=== PATIENT | female | born 1945 | race Caucasian/White ===

== ENCOUNTER 2019-11-05 13:53 | Outpatient (CLI) | payer MEDICARE, SELFPAY ==
[2019-11-05] MEDS: HEPARIN SOD FLUSH 500 UNITS/5 ML SYRINGE IV PUSH (14:05)
--- NOTE | 2019-11-05 14:08 | PC.NURSE ---
Patient here for port flush to left chest. Port site accessed easily. Patient tolerated fair. Port flushed well. Good blood return received. Port flushed with 10 ml of normal Saline and 5 ml of heparin 500 UT. Port deaccessed. Band aid applied to site. Next appt. made for 320 at 1000. Patient denies any questions at discharge. Left via wheelchair accompanied by Home care worker.
== END 2019-11-05 13:54 | disposition home or self-care (01) ==
PROVIDERS: PCP Nurse Practitioner Family; Visit Provider Nurse Practitioner Family
DX: Z45.2 Encounter for adjustment and management of vascular access device (principal)
CPT/HCPCS: 96523

== ENCOUNTER 2019-11-11 15:20 | Outpatient (CLI) | payer MEDICARE, SELFPAY ==
--- NOTE | ~2019-11-11 | XR_ITS ---
EXAMINATION: XR ribs LT 2V w CXR 2V INDICATION: Left chest pain after fall TECHNIQUE: PA and lateral views of the chest and 3 views of the left ribs were obtained. COMPARISON: 09/30/2017 FINDINGS: A left subclavian Port-A-Cath ends with its tip in the proximal superior vena cava. There i s chronic airspace opacity in the right lung apex, consistent with treated malignancy. There is mild atelectasis of the lower lobes. No pleural effusion or pneumothorax is identified. The heart size is normal. No displaced left for fracture is identified. There is mild left shoulder osteoarthritis. An IVC filter is noted in the abdomen on the lateral view. IMPRESSION: 1. No displaced rib fracture identified. 2. Chronic opacity in the right lung apex, consistent with treated malignancy. Reviewed, dictated and finalized at location A. IAL TECHNICAL OPERATIONS OFFICER
== END 2019-11-11 15:21 | disposition home or self-care (01) ==
LOC: CHSIMG 15:24
PROVIDERS: PCP Family Medicine; Visit Provider Family Medicine
DX: R07.81 Pleurodynia (principal); W19.XXXA Unspecified fall, initial encounter
CPT/HCPCS: 71045; 71101

== ENCOUNTER 2020-06-08 15:35 | Emergency (ER) | payer MEDICARE, SELFPAY ==
--- NOTE | ~2020-06-08 | CT_ITS ---
EXAMINATION: CT abdomen pelvis w con INDICATION: Left lower quadrant pain, history of ventral hernia, concern for small bowel obstruction TECHNIQUE: Computed tomographic images of the abdomen and pelvis were obtained after the administrati on of 100 cc of Omnipaque 350 intravenous contrast. The dose-length product (DLP) was 1540.37 mGy-cm. Automated exposure control and iterative reconstruction technique were employed. COMPARISON: 09/28/2015 FINDINGS: Minimal dependent atelectasis is present in the lung bases. The heart size is normal. The g allbladder is surgically absent. The liver, spleen, pancreas, and adrenal glands are normal. Cysts of the kidneys measure up to 3.1 cm on the right. An inferior vena cava filter is noted. There is calci fied atherosclerosis of the aorta and many of the other arteries. No pathologically enlarged abdomina l or pelvic lymph nodes are identified. There are changes of prior mesh ventral hernia repair. A larg e fat-containing ventral hernia is present immediately cranial to the mesh. There is a midline ventra l hernia containing nonobstructed small bowel immediately caudal to the mesh. There is no free intrap eritoneal gas or evidence of bowel obstruction. There is severe lumbar spondylosis. IMPRESSION: 1. Changes of mesh ventral hernia repair with a large fat-containing hernia immediately cranial to th e mesh and a moderate-sized hernia containing nonobstructed small bowel immediately caudal to the mes h. Reviewed, dictated and finalized at location A. IMPRESSION: 1. Changes of mesh ventral hernia repair with a large fat-containing hernia imm ediately cranial to the mesh and a moderate-sized hernia containing nonobstruct ed small bowel immediately caudal to the mesh.
[2020-06-08 16:34] VITALS: BP 165/94; PULSE 81; RESP 18; TEMP 36.6; O2SAT 100
--- NOTE | 2020-06-08 16:39 | ED.ABDPAIN ---
HPI - Abdominal Pain General Chief Complaint: Abdominal Pain Stated Complaint: possible bowel obstruction Time Seen by Provider: 06/08/20 16:39 Source: patient Mode of arrival: wheelchair Limitations: no limitations History of Present Illness HPI narrative: 75-year-old woman who has had hernia gallbladder surgery comes in today complaining of abdominal pain. She states that she has had abdominal pain for a long time but today is much worse. She denies fever, nausea, vomiting, diarrhea, blood in her stools, dysuria, hematuria, or change in appetite. She states the pain is worse with movement and coughing. Is mostly on the left lower quadrant. MD elicited complaint: abdominal pain Pertinent past history: constipation and other ( Ventral hernia) Onset (ago): day(s) (1-2) Pain Consistency: constant Location: LLQ Severity: moderate Quality: sharp Radiation: none Migration to: no migration Exacerbating factors: movement and other (cough) Associated symptoms: nausea and diarrhea (she states the diarrhea is from constipation medications) Related Data Home Medications Medication Instructions Recorded Confirmed acetaminophen 500 mg tablet 1,000 mg PO TID PRN tablet 07/27/19 06/08/20 albuterol sulfate 2.5 mg INHALATION Q4-6H PRN MDD 07/27/19 06/08/20 2.5mg ascorbic acid (vitamin C) 1,000 mg 1 gm PO DAILY 07/27/19 06/08/20 tablet aspirin 81 mg tablet,delayed 81 mg PO DAILY 07/27/19 06/08/20 release furosemide 40 mg tablet 40 mg PO QAM 07/27/19 06/08/20 ipratropium 0.5 mg-albuterol 3 mg 3 ml INHALATION QID PRN MDD 3 07/27/19 06/08/20 (2.5 mg base)/3 mL nebulization soln levothyroxine 88 mcg tablet 88 mcg PO DAILY 07/27/19 06/08/20 magnesium oxide 400 mg PO DAILY 07/27/19 06/08/20 atorvastatin 80 mg tablet 80 mg PO DAILY 02/01/20 06/08/20 cholecalciferol (vitamin D3) 10 10 mcg PO DAILY 02/01/20 06/08/20 mcg (400 unit) capsule hydrocodone 5 mg-acetaminophen 325 1 tablet PO Q6H PRN MDD 1 02/01/20 06/08/20 mg tablet metformin 500 mg tablet 500 mg PO BID 02/01/20 06/08/20 Allergies Allergy/AdvReac Type Severity Reaction Status Date / Time adhesive Allergy Intermediate Unknown Verified 06/08/20 17:14 latex Allergy Intermediate Unknown Verified 06/08/20 17:14 Review of Systems Constitutional: Constitutional: Denies chills, Denies fever(s) and Denies weakness Eyes: Eyes: Denies change in vision and Denies photophobia ENT: Denies dysphagia, Denies nasal congestion and Denies sore throat Cardiovascular: Cardiovascular: Denies chest pain and Denies radiating jaw, neck or arm pain Respiratory: Respiratory: Denies cough and Denies dyspnea Gastrointestinal: Gastrointestinal: Reports abdominal pain, Reports diarrhea, Reports nausea and Denies vomiting Genitourinary: Genitourinary: Denies hematuria, Denies nocturia and Denies dysuria Musculoskeletal: Musculoskeletal: Denies back pain, Denies arthralgias and Denies joint swelling Integumentary/Breasts: Skin/Breast: Denies pruritus, Denies erythema and Denies rash Neurologic: Denies vertigo, Denies dizziness and Denies syncope Hematologic/Lymphatic: Hematologic/Lymphatic: Denies easy bleeding and Denies easy bruising Allergic/Immunologic: Allergic/Immunologic: Denies lip swelling and Denies tongue swelling PMFSH Past Medical History Medical History CHF (congestive heart failure) Chronic kidney disease, stage 3 (moderate) COPD (chronic obstructive pulmonary disease) Effusion of glenohumeral joint Essential hypertension Femoral artery stenosis, left Full thickness rotator cuff tear GERD without esophagitis HLD (hyperlipidemia) Hypothyroid Leg weakness, bilateral Low back pain Lung cancer Morbidly obese HALI (obstructive sleep apnea) Osteoarthritis of acromioclavicular joint Osteoarthritis of glenohumeral joint Type 2 diabetes mellitus Surgical History Surgical History (Reviewed 06/08/20 @ 17:00 by
--- NOTE | 2020-06-08 17:03 | ECG_ITS ---
Measurements Intervals [place] Rate: 77 P: 38 VT: 256 QRS: -9 QRSD: 101 T: 48 QT: 424 QTc: 481 Interpretive Statements SINUS RHYTHM WITH FIRST DEGREE AV BLOCK EARLY PRECORDIAL R/S TRANSITION ABNORMAL ECG Electronically Signed On 06-08-2020 17:47:23 CDT by Chauncey Pérez D.O.
[2020-06-08 17:20] LABS: Basophils Absolute Auto 0.03 K/mm3 (0.00-0.10); Basophils Percent Auto 0.5 % (0.0-1.0); Eosinophils Absolute Auto 0.53 K/mm3 (0.02-0.50); Eosinophils Percent Auto 8.4 % (1.0-6.0); Hematocrit 35.3 % (35.0-42.0); Hemoglobin 10.9 g/dL (11.7-13.8); Immature Granulocyte Absolute 0.02 K/mm3 (0.00-0.00); Immature Granulocyte Percent A 0.3 % (0.0-0.0); Mean Corpuscular HGB Conc 30.9 g/dL (32.0-36.0); Mean Corpuscular Hemoglobin 28.4 pg (27.0-31.0); Mean Corpuscular Volume 91.9 fL (78.0-102.0); Mean Platelet Volume 9.6 fl (9.2-11.8); Monocytes Absolute Auto 0.63 K/mm3 (0.10-0.90); Neutrophils Absolute Auto 3.9 K/mm3 (1.7-7.2); Neutrophils Percent Auto 61.8 % (50.0-70.0); Platelet Count Result 265 K/mm3 (150-420); Red Blood Count 3.84 M/mm3 (4.20-5.40); White Blood Count 6.3 K/mm3 (4.8-10.8)
[2020-06-08 17:36] LABS: Partial Thromboplastin Time 28.2 SEC (22.3-31.6); Prothrombin Time 10.5 Seconds (9.64-11.0)
[2020-06-08 17:42] LABS: Lactic Acid Reflex 0.8 mmol/L (0.4-2.0)
[2020-06-08 17:49] LABS: Alanine Aminotransferase 31 U/L (14-59); Albumin Level 3.6 g/dL (3.4-5.0); Alkaline Phosphatase 74 U/L (46-116); Anion Gap 5 mmol/L (8-16); Aspartate Amino Transferase 23 U/L (15-37); Bilirubin,Total 0.3 mg/dL (0.00-1.00); Blood Urea Nitrogen 17 mg/dL (7-18); Carbon Dioxide 33 mmol/L (21-32); Chloride 99 mmol/L (98-108); Estimated CRCL calculation 71 ml/min; Estimated Glomerular Filt Rate > 60; Glucose 143 mg/dL (70-99); Lipase 67 U/L (73-393); Osmolality Calculated 287 mOsm/kg (285-295); Potassium 4.1 mmol/L (3.5-5.1); Sodium 137 mmol/L (136-145); Total Protein 7.4 g/dL (6.4-8.2)
[2020-06-08 17:51] LABS: Troponin I < 0.02 ng/mL (0.00-0.056)
[2020-06-08] MEDS: SODIUM CHLORIDE 0.9% IV 1,000 ML 999 ML IV CONT (18:04)
[2020-06-08] MEDS: ONDANSETRON INJ 4 MG/2 ML VIAL IV PUSH (18:13)
[2020-06-08 18:17] VITALS: BP 151/76; PULSE 76; RESP 20; O2SAT 97
--- NOTE | 2020-06-08 18:17 | PC.NURSE ---
Assumed care of patient. VSS, patient reports zero pain at this time. Morphine that has been ordered has been held, ERP aware
[2020-06-08 18:24] LABS: Add Urine Microscopic? NO; Appearance Urine Clear (Clear); Bilirubin Urine Negative (Negative); Blood Urine Negative (Negative); Color Urine Yellow (Yellow); Glucose Urine UA Negative (Negative); Ketones Urine Negative (Negative); Leukocyte Esterase Ur Negative LEU/UL (Negative); Nitrate Urine Negative (Negative); Protein Urine Negative (Negative); Urobilinogen Urine 0.2 mg/dL (0.2-1.0); pH Urine 5.5 (5.0-8.0)
[2020-06-08 19:10] VITALS: BP 148/71; PULSE 80; RESP 18; O2SAT 96
--- NOTE | 2020-06-08 19:11 | PC.NURSE ---
Pt returned from CT scan, continues to deny pain. VSS, awaiting dispo
[2020-06-08 20:01] VITALS: BP 144/72; PULSE 80; RESP 18; O2SAT 94
== END 2020-06-08 20:28 ==
PROVIDERS: Emergency Provider Emergency Medicine; PCP Family Medicine
DX: K43.9 Ventral hernia without obstruction or gangrene (principal); I50.9 Heart failure, unspecified; N18.3 Chronic kidney disease, stage 3 (moderate); K21.9 Gastro-esophageal reflux disease without esophagitis; E78.5 Hyperlipidemia, unspecified; E03.9 Hypothyroidism, unspecified; E11.9 Type 2 diabetes mellitus without complications; F17.200 Nicotine dependence, unspecified, uncomplicated
CPT/HCPCS: 36415; 51701; 74177; 80053; 81003; 83605; 83690; 84484; 85025; 85610; 85730; 93005; 96361; 96374; 99284; J2405; J7030; Q9965

== ENCOUNTER 2020-08-29 16:05 | Inpatient (IN) | payer MEDICARE, BC, SELFPAY ==
--- NOTE | ~2020-08-29 | CT_ITS ---
EXAMINATION: CTA chest PE protocol EXAM DATE: 08/29/2020 23:42 INDICATION: Elevated d-dimer. COVID 19. Shortness of breath. TECHNIQUE: Spiral CTA of the chest (pulmonary arteries) was performed with 100 cc Omnipaque 350 intr avenous contrast injection. Images were acquired during the pulmonary arterial phase. Coronal maxi mum intensity projection 3D-reconstructions were created by the technologist on dedicated workstation . Axial, coronal and sagittal reformatted images were reviewed. The dose-length product (DLP) for t his examination was 914.81 mGy-cm. The exposure was tailored according to patient size (auto mA exp osure control), and iterative reconstruction (ASIR) was used as additional dose reduction technique. Comparison is made to prior examination from 07/19/2017 series doesn't to medical management specialist servic e, and axilla are unremarkable. Scans pelvic splenomegaly, but before. FINDINGS: There are no pulmonary emboli in the 1st through 3rd order (central and interlobar) pulmon yeison arteries. Some loss of attenuation in the segmental pulmonary arteries due to respiratory motion , but no intraluminal filling defects suspected. No thoracic aortic dissection. There is left upper lobe volume loss and opacity, appearance consistent with treated lung cancer, wit h extension of soft tissue density into the hilum. Basilar, dependent predominant groundglass opaciti es could be edema and/or infection. There are no pleural or pericardial effusions. Tracheobronchial tree is patent. There is no mediastinal, hilar or axillary lymphadenopathy. There is no pneumoth orax. Mild cardiomegaly. Left-sided portacatheter. There is exophytic lesion at the midpole of the left kidney measuring 1.5 cm, hemorrhagic cyst or solid mass. Upper abdomen is unremarkable. There is thoracic spondylosis without osteoblastic or osteolytic lesions identified. IMPRESSION: 1. Limited segmental evaluation, but no pulmonary emboli are suspected. 2. Basilar dependent groundglass opacities, edema and/or infection. 3. Right suprahilar soft tissue density insinuating into hilum, likely treated lung cancer. 4. Exophytic left renal hemorrhagic cyst or solid neoplasm. Consider nonemergent kidney ultrasound. Reviewed, dictated and finalized at location A. THCARE MANAGEMENT CONSULTANT IMPRESSION: 1. Limited segmental evaluation, but no pulmonary emboli are suspected. 2. Basilar dependent groundglass opacities, edema and/or infection. 3. Right suprahilar soft tissue density insinuating into hilum, likely treated lung cancer. 4. Exophytic left renal hemorrhagic cyst or solid neoplasm. Consider nonemerge nt kidney ultrasound.
--- NOTE | ~2020-08-29 | XR_ITS ---
EXAMINATION: XR chest 1V portable DATE: 08/30/2020 12:11 INDICATION: Shortness of breath. COVID-19 positive. TECHNIQUE: A single frontal view of the chest was obtained on 2 radiographs. COMPARISON: Chest 2 views 11/11/2019, chest CT 08/29/2020 FINDINGS: There are airspace opacities in the perihilar regions and right lung apex with volume loss and architectural distortion, consistent with radiation fibrosis. There are mild airspace opacities i n right mid and lower lung zones and left lower lung zone. No pleural effusion or pneumothorax. The h eart size is normal. There is a left subclavian port with tip in superior vena cava. IMPRESSION: 1. Airspace opacities in right mid and lower lung zones and left lower lung zone, consistent with ate lectasis versus pneumonia. 2. 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 Reviewed, dictated and finalized at location A. GHT SERVICE INSPECTOR IMPRESSION: 1. Airspace opacities in right mid and lower lung zones and left lower lung zon e, consistent with atelectasis versus pneumonia. 2. 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
--- NOTE | 2020-08-29 16:18 | ECG_ITS ---
Measurements Intervals [place] Rate: 78 P: 39 NC: 253 QRS: -7 QRSD: 110 T: 56 QT: 415 QTc: 474 Interpretive Statements SINUS RHYTHM WITH FIRST DEGREE AV BLOCK INTRAVENTRICULAR CONDUCTION DELAY ABNORMAL ECG Electronically Signed On 08-29-2020 18:10:44 [employer] by Chauncey Pérez D.O.
--- NOTE | 2020-08-29 16:22 | PM.IMHP ---
H&P: HPI History of Present Illness Date/Time: 08/29/20 16:22 Chief complaint: COVID Narrative: Akila Doty is a 75 year old female with a PMH of OA, HALI, COPD, CHF, DMII and morbid obesity that resides in [facility] that tested positive for COVID and has increasing oxygen demand and SOB, fatigue, cough, body aches and fever. She was directly admitted to the hospital for Review of Systems Constitutional: Constitutional: Reports as per HPI Eyes: Eyes: Reports no additional eye complaints ENT: Reports system reviewed and no additional complaints, except as documented Cardiovascular: Cardiovascular: Reports as per HPI Respiratory: Respiratory: Reports as per HPI Gastrointestinal: Gastrointestinal: Reports no additional gastrointestinal complaints Genitourinary: Genitourinary: Reports no additional female genitourinary complaints Musculoskeletal: Musculoskeletal: Reports no additional musculoskeletal complaints Integumentary/Breasts: Skin/Breast: Reports system reviewed and no additional complaints, except as docu Neurologic: Reports system reviewed and no additional complaints, except as documented Psychiatric: Psychiatric: Reports no additional psychiatric complaints [facility] Past Medical History Medical History CHF (congestive heart failure) Chronic kidney disease, stage 3 (moderate) COPD (chronic obstructive pulmonary disease) Effusion of glenohumeral joint Essential hypertension Femoral artery stenosis, left Full thickness rotator cuff tear GERD without esophagitis HLD (hyperlipidemia) Hypothyroid Leg weakness, bilateral Low back pain Lung cancer Morbidly obese HALI (obstructive sleep apnea) Osteoarthritis of acromioclavicular joint Osteoarthritis of glenohumeral joint Type 2 diabetes mellitus Ventral hernia Surgical History Surgical History History of back surgery History of carpal tunnel surgery History of cholecystectomy History of hernia repair History of knee replacement, total History of laminectomy History of left cataract surgery History of right cataract surgery History of thyroidectomy Family History Family History Father Acute myocardial infarction Cerebrovascular accident Mother Family history of type 2 diabetes mellitus Sibling Heart disease Other Hypertension Social History Social History Smoking status: Current every day smoker Alcohol intake: never Meds Home Medications and Allergies Home Medications Medication Instructions Recorded Confirmed Type acetaminophen 500 mg tablet 1,000 mg PO TID PRN tablet 07/27/19 06/14/20 History albuterol sulfate 2.5 mg INHALATION Q4-6H PRN MDD 07/27/19 06/14/20 History 2.5mg ascorbic acid (vitamin C) 1,000 mg 1 gm PO DAILY 07/27/19 06/14/20 History tablet aspirin 81 mg tablet,delayed 81 mg PO DAILY 07/27/19 06/14/20 History release furosemide 40 mg tablet 40 mg PO QAM 07/27/19 06/14/20 History ipratropium 0.5 mg-albuterol 3 mg 3 ml INHALATION QID PRN MDD 3 07/27/19 06/14/20 History (2.5 mg base)/3 mL nebulization soln levothyroxine 88 mcg tablet 88 mcg PO DAILY 07/27/19 06/14/20 History magnesium oxide 400 mg PO DAILY 07/27/19 06/14/20 History escitalopram oxalate 20 mg tablet 20 mg PO DAILY #30 tablet 12/14/19 06/14/20 Rx atorvastatin 80 mg tablet 80 mg PO DAILY 02/01/20 06/14/20 History cholecalciferol (vitamin D3) 10 10 mcg PO DAILY 02/01/20 06/14/20 History mcg (400 unit) capsule hydrocodone 5 mg-acetaminophen 325 1 tablet PO Q6H PRN MDD 1 02/01/20 06/14/20 History mg tablet metformin 500 mg tablet 500 mg PO BID 02/01/20 06/14/20 History Allergies Allergy/AdvReac Type Severity Reaction Status Date / Time adhesive Allergy Intermediate Unknown Verified 1
[2020-08-29 17:15] VITALS: BP 148/78; PULSE 79; PULSE 89; RESP 22; TEMP 36.4; O2SAT 93; BMI 42.8
--- NOTE | 2020-08-29 17:15 | ADMGEN ---
This patient, Akila Doty, was admitted to 2nd Floor Room 210-2. Patient/family oriented to hospital policies and general routines including ID bracelet, bed and alarms, visiting hours, pain management, procedures, bathroom and other care routines, personal items, smoking policy, room service/diet, and visiting hours. Information on how to activate the Rapid Response Team has been discussed. Patient/Family are encouraged to report perceived risks to care and to ask questions if they do not understand what they are told or what they should do.
[2020-08-29 17:45] VITALS: PULSE 75
[2020-08-29 18:22] LABS: Base Excess ABG 2.8 mmol/L (0-2); HCO3 ABG 27.4 mmol/L (23-29); Oxygen Content ABG 16.7 %vol (16.0-22.0); Oxygen Saturation ABG 92.2 % (95-97); Oxyhemoglobin 91.4 % (94-100); PCO2 ABG 42.4 mmHg (35-45); PO2 ABG 58.3 mmHg (75-85); pH ABG 7.43 (7.35-7.45)
[2020-08-29 18:23] LABS: Device NASAL CANNULA; Modified Allen's Test Pass; Site Drawn RIGHT RADIAL
[2020-08-29 18:26] LABS: Eosinophils Absolute Auto 0.02 K/mm3 (0.02-0.50); Eosinophils Percent Auto 0.5 % (1.0-6.0); Hematocrit 39.8 % (35.0-42.0); Hemoglobin 12.2 g/dL (11.7-13.8); Immature Granulocyte Absolute 0.06 K/mm3 (0.00-0.00); Immature Granulocyte Percent A 1.4 % (0.0-0.0); Lymphocytes Percent Auto 9.5 % (18.0-42.0); Mean Corpuscular HGB Conc 30.7 g/dL (32.0-36.0); Mean Corpuscular Hemoglobin 27.2 pg (27.0-31.0); Mean Corpuscular Volume 88.8 fL (78.0-102.0); Monocytes Absolute Auto 0.27 K/mm3 (0.10-0.90); Monocytes Percent Auto 6.4 % (2.0-11.0); Neutrophils Absolute Auto 3.5 K/mm3 (1.7-7.2); Neutrophils Percent Auto 82.2 % (50.0-70.0); Platelet Count Result 158 K/mm3 (150-420); Red Blood Count 4.48 M/mm3 (4.20-5.40); Red Cell Distribution Width 15.2 % (11.6-14.4); White Blood Count 4.2 K/mm3 (4.8-10.8)
[2020-08-29 18:44] LABS: BNP 105 pg/mL (0-100)
[2020-08-29 18:45] LABS: Alanine Aminotransferase 50 U/L (14-59); Alkaline Phosphatase 67 U/L (46-116); Anion Gap 10 mmol/L (8-16); Aspartate Amino Transferase 56 U/L (15-37); Bilirubin,Total 0.5 mg/dL (0.00-1.00); Blood Urea Nitrogen 34 mg/dL (7-18); Carbon Dioxide 31 mmol/L (21-32); Chloride 94 mmol/L (98-108); Estimated CRCL calculation 46 ml/min; Estimated Glomerular Filt Rate 40; Glucose 148 mg/dL (70-99); Osmolality Calculated 290 mOsm/kg (285-295); Potassium 3.5 mmol/L (3.5-5.1); Sodium 135 mmol/L (136-145); Total Protein 7.9 g/dL (6.4-8.2); Troponin I 12.8 ng/L (0.00-60.4)
[2020-08-29 18:46] LABS: CRP > 25.0 mg/dL (0.0-0.9)
[2020-08-29 19:07] LABS: INR 0.9; Prothrombin Time 10.3 Seconds (9.50-12.10)
[2020-08-29 20:00] VITALS: BP 170/81; PULSE 80; PULSE 81; RESP 20; TEMP 36.6; O2SAT 93
--- NOTE | 2020-08-29 20:30 | PCDIET ---
Patient stated that she no longer wants to be a full code. Email sent to Straw Hat Brim Cutter Operator regarding statement.
[2020-08-29] MEDS: REMDESIVIR 200 MG/NS 250 ML 200 MG/250 ML BAG 250 MG IVPB (20:58)
[2020-08-29] MEDS: SODIUM CHLORIDE 0.9% IV 1,000 ML 150 ML IV CONT (21:00)
[2020-08-29] MEDS: ENOXAPARIN 40 MG/0.4 ML SYRINGE SUB-Q (21:25)
[2020-08-30] VITALS (13 sets, daily range): BP systolic 121–190; BP diastolic 59–100; PULSE 66–125; RESP 22–38; TEMP 35.7–36.8; O2SAT 90–95
--- NOTE | 2020-08-30 00:10 | PC.NURSE ---
Consent for CT received from sister Cece Pringle. Unable to contact son or daughter. returned from CT. Able to respond to verbally to question. alert to self only
--- NOTE | 2020-08-30 06:00 | PC.NURSE ---
Dr. Kumar notified of patient's heart rate increased to the 130's to 140's and A-fib at times. Lungs sound wet. Sao2 down to 89%. O2 increased to 6L from 4 per NC. SaO2 increased to 92%. BP 180/90. Order received.
[2020-08-30 06:03] LABS: Alanine Aminotransferase 52 U/L (14-59)
--- NOTE | 2020-08-30 06:13 | PC.NURSE ---
Patient experiencing a-fib and tachycardia. BP 180/90 respirations 38. SPO2 89% on 4 liters. O2 increased to 6 liters-SPO2 up to 90% A-fib and increased respirations continue. Doctor notified and order received for 60 mgs of lasix IVP. Administered as ordered.
[2020-08-30] MEDS: FUROSEMIDE INJ 40 MG/4 ML VIAL 80 MG (06:27)
[2020-08-30] MEDS: dilTIAZem HCl INJ 25 MG/5 ML VIAL IV PUSH (06:34)
[2020-08-30] MEDS: dilTIAZem HCl INJ 25 MG/5 ML VIAL (06:36)
[2020-08-30 06:52] LABS: Anion Gap 10 mmol/L (8-16); Basophils Absolute Auto 0.01 K/mm3 (0.00-0.10); Basophils Percent Auto 0.2 % (0.0-1.0); Blood Urea Nitrogen 29 mg/dL (7-18); Calcium 8.5 mg/dL (8.5-10.1); Carbon Dioxide 31 mmol/L (21-32); Chloride 97 mmol/L (98-108); Estimated CRCL calculation 58 ml/min; Estimated Glomerular Filt Rate 53; Glucose 170 mg/dL (70-99); Hematocrit 38.6 % (35.0-42.0); Hemoglobin 12.2 g/dL (11.7-13.8); Immature Granulocyte Absolute 0.08 K/mm3 (0.00-0.00); Immature Granulocyte Percent A 1.9 % (0.0-0.0); Lymphocytes Absolute Auto 0.58 K/mm3 (1.10-4.50); Lymphocytes Percent Auto 13.6 % (18.0-42.0); Mean Corpuscular HGB Conc 31.6 g/dL (32.0-36.0); Mean Corpuscular Hemoglobin 27.9 pg (27.0-31.0); Mean Corpuscular Volume 88.1 fL (78.0-102.0); Mean Platelet Volume 10.8 fl (9.2-11.8); Monocytes Absolute Auto 0.26 K/mm3 (0.10-0.90); Monocytes Percent Auto 6.1 % (2.0-11.0); Neutrophils Absolute Auto 3.3 K/mm3 (1.7-7.2); Neutrophils Percent Auto 78.2 % (50.0-70.0); Osmolality Calculated 295 mOsm/kg (285-295); Platelet Count Result 152 K/mm3 (150-420); Potassium 3.4 mmol/L (3.5-5.1); Red Blood Count 4.38 M/mm3 (4.20-5.40); Red Cell Distribution Width 14.9 % (11.6-14.4); Sodium 138 mmol/L (136-145); White Blood Count 4.3 K/mm3 (4.8-10.8)
--- NOTE | 2020-08-30 07:01 | PC.NURSE ---
Doctor called back to check on patient progress. Continues to have a-fib and tachycardia. IVP diltizam order with following drip. Administered as ordered. patient had small amount of liquid stool.
[2020-08-30 07:18] LABS: BNP 104 pg/mL (0-100)
[2020-08-30] MEDS: FUROSEMIDE 40 MG TABLET PO (09:22)
[2020-08-30] MEDS: ESCITALOPRAM OXALATE 10 MG TABLET 20 MG PO (09:22)
[2020-08-30] MEDS: ASPIRIN 81 MG ENTERIC TABLET PO (09:22)
[2020-08-30] MEDS: LEVOTHYROXINE SODIUM 88 MCG TABLET PO (09:22)
[2020-08-30] MEDS: DEXAMETHASONE 2 MG TABLET 6 MG PO (09:22)
[2020-08-30] MEDS: MAGNESIUM OXIDE 400 MG TABLET PO (09:22)
[2020-08-30] MEDS: ENOXAPARIN 40 MG/0.4 ML SYRINGE SUB-Q ×2 (09:23→20:43)
--- NOTE | 2020-08-30 09:31 | PM.IMPN ---
Progress Note: A&P Assessment and Plan (1) COVID-19: Code(s): U07.1 - COVID-19 Status: Acute Assessment and Plan: 08/30/2020 6 L nasal cannula with SpO2 90% or better, Decadron and Remdesivir started 08/30/2020, COVID test done at outside facility and was positive on 08/27/2020, patient having very difficult time formulating words, confused (2) HALI (obstructive sleep apnea): Code(s): G47.33 - Obstructive sleep apnea (adult) (pediatric) Status: Acute Assessment and Plan: 08/30/2020 patient is to continue using CPAP however that machine is at the facility she came from, patient not in a negative pressure room (3) Type 2 diabetes mellitus: Code(s): E11.9 - Type 2 diabetes mellitus without complications Status: Chronic Assessment and Plan: 08/30/2020 holding metformin at this time due to patient having received IV contrast, monitor glucose with daily labs (4) COPD (chronic obstructive pulmonary disease): Code(s): J44.9 - Chronic obstructive pulmonary disease, unspecified Status: Acute Assessment and Plan: 08/30/2020 continue with albuterol inhaler which may prove difficult considering patient's condition, nurse had a very difficult time getting the patient to even take her morning medication (5) CHF (congestive heart failure): Code(s): I50.9 - Heart failure, unspecified Status: Acute Assessment and Plan: 08/30/2020 continue with 40 mg Lasix, monitor I&Os, IV fluids stopped (6) Hypothyroid: Code(s): E03.9 - Hypothyroidism, unspecified Status: Acute Assessment and Plan: 08/30/2020 continue with levothyroxine 88 mcg daily (7) Osteoarthritis of acromioclavicular joint: Code(s): M19.019 - Primary osteoarthritis, unspecified shoulder Status: Acute Assessment and Plan: 08/30/2020 p.r.n. Tylenol and morphine Subjective Date/time seen: 08/30/20 09:31 Patient has a very difficult time communicating. She was barely able to say the location of the hospital she is currently hospitalized. Review of Systems Review of Systems: ROS unobtainable: Yes unobtainable due to medical condition Exam Const: General: alert Nutritional Appearance: obese morbidly obese Orientation/consciousness: oriented to person Resp: Effort & Inspection: Actively coughing and labored Auscultation: rales (prominent left posterior base) and rhonchi (scattered) Cardio: Rate: regular rate Rhythm: regular rhythm Heart sounds: S1 normal heart sound present and S2 normal heart sound present Other: patient was in AFib earlier but is now on Cardizem drip GI: GI Palp: Yes Soft to palpation and No Tenderness to palpation present (GI) Auscultation: Hypoactive bowel sounds present Urinary Catheter: Urinary Catheter: patent and draining Neuro: General: oriented to person Other: does not follow commands well Objective Data Vital Signs Vital Signs: Vital Signs - 24 hr 08/29/20 17:15 08/29/20 17:45 08/29/20 20:00 Temperature 97.5 F L 98 F Pulse Rate 89 75 81 Respiratory Rate 22 H 20 Blood Pressure 148/78 H 170/81 H Pulse Oximetry 93 93 08/30/20 00:00 08/30/20 04:00 08/30/20 06:02 Temperature 97 F L 98.2 F Pulse Rate 85 85 125 H Respiratory Rate 34 H 38 H Blood Pressure 190/100 H 180/90 H Pulse Oximetry 95 90 08/30/20 06:40 08/30/20 07:03 Temperature Pulse Rate 110 H 114 H Respiratory Rate Blood Pressure 180/100 H Pulse Oximetry Intake/Output Intake/Output: Intake & Output 08/27/20 08/28/20 08/29/20 08/30/20 23:59 23:59 23:59 23:59 Intake Total 900 1300 Balance 900 1300 Meds/Results Medications: Active Medications Generic Name Dose Route Start Last Admin Trade Name Freq PRN Reason Stop Dose Admin Acetaminophen 1,000 mg 08/29/20 18:14 Acetaminophen 500 Mg Tablet PO TID PRN Pain Hydrocodone Bitart/Acetaminophen 1 tab 08/29/20 18:14 Hydrocodone/Jose
[2020-08-30 11:36] LABS: Device NASAL CANNULA; HCO3 ABG 27.7 mmol/L (23-29); Modified Allen's Test Pass; Oxygen Content ABG 17.4 %vol (16.0-22.0); Oxyhemoglobin 92.4 % (94-100); PCO2 ABG 38.2 mmHg (35-45); PO2 ABG 62.1 mmHg (75-85); Site Drawn RIGHT RADIAL; Total Hemoglobin 13.4 g/dL; pH ABG 7.48 (7.35-7.45)
[2020-08-30] MEDS: ALBUTEROL SULFATE (*SP) INHALER 2 PUFF INHALATION ×3 (14:45→20:15)
[2020-08-30 18:34] LABS: Glucose Point of Care 272 (65-105)
[2020-08-30] MEDS: REMDESIVIR 100 MG/NS 250 ML 100 MG/250 ML BAG 250 MG IVPB (18:34)
[2020-08-30] MEDS: dilTIAZem HCL 30 MG TABLET PO (18:34)
[2020-08-30 22:01] LABS: Glucose Point of Care 242 (65-105)
[2020-08-31] VITALS (8 sets, daily range): BP systolic 133–142; BP diastolic 58–73; PULSE 65–74; RESP 18–24; TEMP 35.9–36.1; O2SAT 90–92
[2020-08-31] MEDS: dilTIAZem HCL 30 MG TABLET PO ×3 (00:31→12:13)
--- NOTE | 2020-08-31 00:39 | PC.NURSE ---
2129 pt is drowsy but does talk when spoke to. she is questing nurse about ppe attire. becomes alive when explained dx of kassie. claims she has not had visitors or gone anywhere and wants to know how she got it. Then drifts off to sleep. turned and positioned. abbi kathleen
[2020-08-31] MEDS: LEVOTHYROXINE SODIUM 88 MCG TABLET PO (05:27)
[2020-08-31 05:59] LABS: Hematocrit 37.8 % (35.0-42.0); Hemoglobin 11.8 g/dL (11.7-13.8); Mean Corpuscular HGB Conc 31.2 g/dL (32.0-36.0); Mean Corpuscular Hemoglobin 27.1 pg (27.0-31.0); Mean Corpuscular Volume 86.7 fL (78.0-102.0); Mean Platelet Volume 10.6 fl (9.2-11.8); Platelet Count Result 171 K/mm3 (150-420); Red Blood Count 4.36 M/mm3 (4.20-5.40); Red Cell Distribution Width 14.6 % (11.6-14.4)
[2020-08-31 06:17] LABS: Band Neutrophils Percent 2 % (0-6); Basophils Percent Manual 0 % (0-1); Eosinophils Percent Manual 0 % (1-6); Lymphocytes Absolute Manual 0.48 K/mm3 (1.1-4.5); Lymphocytes Percent Manual 16 % (18-44); Monocytes Absolute Manual 0.33 K/mm3 (0.1-0.90); Monocytes Percent Manual 11 % (3-9); Neutrophils Absolute Manual 2.19 K/mm3 (1.7-7.2); Neutrophils Percent Manual 71 % (46-73); Platelet Estimate Adequate (Adequate)
[2020-08-31 06:22] LABS: Alanine Aminotransferase 53 U/L (14-59); Albumin Level 2.8 g/dL (3.4-5.0); Alkaline Phosphatase 64 U/L (46-116); Anion Gap 10 mmol/L (8-16); Aspartate Amino Transferase 59 U/L (15-37); Bilirubin,Total 0.4 mg/dL (0.00-1.00); Blood Urea Nitrogen 40 mg/dL (7-18); Calcium 8.8 mg/dL (8.5-10.1); Carbon Dioxide 31 mmol/L (21-32); Chloride 95 mmol/L (98-108); Estimated CRCL calculation 47 ml/min; Estimated Glomerular Filt Rate 41; Glucose 195 mg/dL (70-99); Osmolality Calculated 296 mOsm/kg (285-295); Potassium 2.9 mmol/L (3.5-5.1); Sodium 136 mmol/L (136-145); Total Protein 7.1 g/dL (6.4-8.2)
[2020-08-31] MEDS: ENOXAPARIN 40 MG/0.4 ML SYRINGE SUB-Q ×2 (08:15→20:27)
[2020-08-31] MEDS: MAGNESIUM OXIDE 400 MG TABLET PO (08:16)
[2020-08-31] MEDS: metFORMIN HCL 500 MG TABLET PO (08:16)
[2020-08-31] MEDS: CHOLECALCIFEROL 400 UNITS TABLET (VIT D) PO (08:16)
[2020-08-31] MEDS: ESCITALOPRAM OXALATE 10 MG TABLET 20 MG PO (08:17)
[2020-08-31] MEDS: ASCORBIC ACID 500 MG TABLET 1000 MG PO (08:17)
[2020-08-31] MEDS: ASPIRIN 81 MG ENTERIC TABLET PO (08:17)
[2020-08-31] MEDS: DEXAMETHASONE 2 MG TABLET 6 MG PO (08:17)
[2020-08-31] MEDS: ATORVASTATIN 40 MG TABLET 80 MG PO (08:17)
[2020-08-31] MEDS: FUROSEMIDE 40 MG TABLET PO (08:18)
[2020-08-31] MEDS: ALBUTEROL SULFATE (*SP) INHALER 2 PUFF INHALATION ×4 (08:18→20:27)
[2020-08-31 08:57] LABS: CRP 13.7 mg/dL (0.0-0.9)
[2020-08-31] MEDS: KCL 20 MEQ/SW 100 ML 100 ML 50 MEQ IVPB ×2 (10:31→12:13)
--- NOTE | 2020-08-31 11:45 | P.PN_ITS ---
Progress Note: A&P Assessment and Plan (1) COVID-19: Code(s): U07.1 - COVID-19 <JIM Euceda - Last Filed: 08/31/20 12:03> Status: Acute <Thomas IsmaJIM Tavarez - Last Filed: 08/31/20 12:03> Assessment and Plan: * Patient tested + 08/27/2020 patient off quarantine 1223. Test done at outside facility * Continue dexamethasone 2/10 in remdesivir started 08/30/2020 * Chest x-ray indicates . Airspace opacities in right mid and lower lung zones and left lower lung zone, consistent with atelectasis versus pneumonia. * CTA negative for PE <JIM Euceda - Last Filed: 08/31/20 12:03> (2) HALI (obstructive sleep apnea): Code(s): G47.33 - Obstructive sleep apnea (adult) (pediatric) <JIM Euceda - Last Filed: 08/31/20 12:03> Status: Acute <JIM Euceda - Last Filed: 08/31/20 12:03> Assessment and Plan: * CPAP discontinued due to positive Covid test * Will continue 6 L nasal cannula <JIM Euceda - Last Filed: 08/31/20 12:03> (3) Essential hypertension: Code(s): I10 - Essential (primary) hypertension <JIM Euceda - Last Filed: 08/31/20 12:03> Status: Acute <JIM Euceda - Last Filed: 08/31/20 12:03> Assessment and Plan: * Blood pressure 135/58 * Continue Cardizem 30 mg every 6 hours * Continue Lasix 40 mg daily * Will adjust medication as needed * Vital signs as ordered <JIM Euceda - Last Filed: 08/31/20 12:03> (4) HLD (hyperlipidemia): Code(s): E78.5 - Hyperlipidemia, unspecified <JIM Euceda - Last Filed: 08/31/20 12:03> Status: Acute <ADRIANNE Euceda-C - Last Filed: 08/31/20 12:03> Assessment and Plan: * Continue statins 80 mg daily <Thomas Tavares JIM - Last Filed: 08/31/20 12:03> (5) GERD without esophagitis: Code(s): K21.9 - Gastro-esophageal reflux disease without esophagitis <Thomas Tavares SHANTLuis E - Last Filed: 08/31/20 12:03> Status: Acute <Thomas Tavares JIM - Last Filed: 08/31/20 12:03> Assessment and Plan: * Started PPI <Thomas Tavares SHANTLuis E - Last Filed: 08/31/20 12:03> (6) Chronic kidney disease, stage 3 (moderate): Code(s): N18.3 - Chronic kidney disease, stage 3 (moderate) <Thomas Tavares SHANTLuis E - Last Filed: 08/31/20 12:03> Status: Acute <Thomas Tavares JIM - Last Filed: 08/31/20 12:03> Assessment and Plan: * Creatinine slightly worsening * If patient's renal function worsen will IV hydrate patient cautiously * Will continue to monitor * Renal dose medication <Thomas Tavares JIM - Last Filed: 08/31/20 12:03> (7) Morbidly obese: Code(s): E66.01 - Morbid (severe) obesity due to excess calories <Thomas Tavares SHANTLuis E - Last Filed: 08/31/20 12:03> Status: Acute <Thomas Tavares JIM - Last Filed: 08/31/20 12:03> Assessment and Plan: * Patient educated on healthy lifestyle <Thomas AshbyNy Chaitanya MINE PATROLElioLuis E - Last Filed: 08/31/20 12:03> (8) Hypothyroid: Code(s): E03.9 - Hypothyroidism, unspecified <Thomas Tavares MINE PATROL-Luis E - Last Filed: 08/31/20 12:03> Status: Acute <Thomas AshbyNy Tavares MINE PATROL-Luis E - Last Filed: 08/31/20 12:03> Assessment and Plan: * Continue Synthroid 88 MCG's daily <JIM Euceda - Last Filed: 08/31/20 12:03> (9) Type 2 diabetes mellitus: Code(s): E11.9 - Type 2 diabetes mellitus without complications <JIM Euceda - Las
--- NOTE | 2020-08-31 11:45 | WPDPN ---
Progress Note: A&P Assessment and Plan (1) COVID-19: Code(s): U07.1 - COVID-19 <JIM Euceda - Last Filed: 08/31/20 12:03> Status: Acute <JIM Euceda - Last Filed: 08/31/20 12:03> Assessment and Plan: Patient tested + 08/27/2020 patient off quarantine 1223. Test done at outside facility Continue dexamethasone 2/10 in remdesivir started 08/30/2020 Chest x-ray indicates . Airspace opacities in right mid and lower lung zones and left lower lung zone, consistent with atelectasis versus pneumonia. CTA negative for PE <JIM Euceda - Last Filed: 08/31/20 12:03> (2) HALI (obstructive sleep apnea): Code(s): G47.33 - Obstructive sleep apnea (adult) (pediatric) <JIM Euceda - Last Filed: 08/31/20 12:03> Status: Acute <SHANT EucedaC - Last Filed: 08/31/20 12:03> Assessment and Plan: CPAP discontinued due to positive Covid test Will continue 6 L nasal cannula <JIM Euceda - Last Filed: 08/31/20 12:03> (3) Essential hypertension: Code(s): I10 - Essential (primary) hypertension <JIM Euceda - Last Filed: 08/31/20 12:03> Status: Acute <JIM Euceda - Last Filed: 08/31/20 12:03> Assessment and Plan: Blood pressure 135/58 Continue Cardizem 30 mg every 6 hours Continue Lasix 40 mg daily Will adjust medication as needed Vital signs as ordered <JIM Euceda - Last Filed: 08/31/20 12:03> (4) HLD (hyperlipidemia): Code(s): E78.5 - Hyperlipidemia, unspecified <SHANT EucedaC - Last Filed: 08/31/20 12:03> Status: Acute <ADRIANNE Euceda-C - Last Filed: 08/31/20 12:03> Assessment and Plan: Continue statins 80 mg daily <ADRIANNE Euceda-C - Last Filed: 08/31/20 12:03> (5) GERD without esophagitis: Code(s): K21.9 - Gastro-esophageal reflux disease without esophagitis <SHANT EucedaC - Last Filed: 08/31/20 12:03> Status: Acute <JIM Euceda - Last Filed: 08/31/20 12:03> Assessment and Plan: Started PPI <JIM Euceda - Last Filed: 08/31/20 12:03> (6) Chronic kidney disease, stage 3 (moderate): Code(s): N18.3 - Chronic kidney disease, stage 3 (moderate) <JIM Euceda - Last Filed: 08/31/20 12:03> Status: Acute <JIM Euceda - Last Filed: 08/31/20 12:03> Assessment and Plan: Creatinine slightly worsening If patient's renal function worsen will IV hydrate patient cautiously Will continue to monitor Renal dose medication <JIM Euceda - Last Filed: 08/31/20 12:03> (7) Morbidly obese: Code(s): E66.01 - Morbid (severe) obesity due to excess calories <SHANT EucedaC - Last Filed: 08/31/20 12:03> Status: Acute <JIM Euceda - Last Filed: 08/31/20 12:03> Assessment and Plan: Patient educated on healthy lifestyle <SHANT EucedaC - Last Filed: 08/31/20 12:03> (8) Hypothyroid: Code(s): E03.9 - Hypothyroidism, unspecified <SHANT EucedaC - Last Filed: 08/31/20 12:03> Status: Acute <ADRIANNE Euceda-C - Last Filed: 08/31/20 12:03> Assessment and Plan: Continue Synthroid 88 MCG's daily <JIM Euceda - Last Filed: 08/31/20 12:03> (9) Type 2 diabetes mellitus: Code(s): E11.9 - Type 2 diabetes mellitus without complications <JIM Euceda - Last Filed: 08/31/20 12:03> Status: Chronic <JIM Euceda - Last Filed: 08/31/20 12:03> Assessment and Plan: Blood sugar 242 Elevated due to steroid use Started Accu-Cheks with sliding scale and hypoglycemic protocol Will adjust medication as needed <JIM Euceda - Last Filed: 08/31/20 12:03> (10) C
[2020-08-31 13:16] LABS: Glucose Point of Care 240 (65-105)
[2020-08-31 17:42] LABS: Glucose Point of Care 297 (65-105)
[2020-08-31] MEDS: REMDESIVIR 100 MG/NS 250 ML 100 MG/250 ML BAG 250 MG IVPB (20:26)
[2020-08-31 21:44] LABS: Glucose Point of Care 376 (65-105)
[2020-09-01] VITALS (7 sets, daily range): BP systolic 166–177; BP diastolic 66–85; PULSE 72–90; RESP 18–22; TEMP 36–36.4; O2SAT 89–95
--- NOTE | 2020-09-01 00:20 | PC.NURSE ---
Upon assessment, pt. noted to be awake and alert, reponds to questions at this time. Pt. reports being uncomfortable. Pt. assisted to Side lying position and off her bottom. Pt. reports feeling a little better. Encouraged pt. to use deep breathing exercises, pt. returned demonstration. Telemetry mon. shows A-fib, VSS, pt. given call pierre in reach and advised to call if needed.
[2020-09-01 05:34] LABS: Hematocrit 34.8 % (35.0-42.0); Immature Granulocyte Absolute 0.11 K/mm3 (0.00-0.00); Immature Granulocyte Percent A 2.2 % (0.0-0.0); Lymphocytes Absolute Auto 0.49 K/mm3 (1.10-4.50); Lymphocytes Percent Auto 9.8 % (18.0-42.0); Mean Corpuscular HGB Conc 31.6 g/dL (32.0-36.0); Mean Corpuscular Hemoglobin 26.7 pg (27.0-31.0); Mean Corpuscular Volume 84.5 fL (78.0-102.0); Mean Platelet Volume 10.1 fl (9.2-11.8); Monocytes Absolute Auto 0.52 K/mm3 (0.10-0.90); Monocytes Percent Auto 10.4 % (2.0-11.0); Neutrophils Absolute Auto 3.9 K/mm3 (1.7-7.2); Neutrophils Percent Auto 77.6 % (50.0-70.0); Platelet Count Result 185 K/mm3 (150-420); Red Blood Count 4.12 M/mm3 (4.20-5.40); Red Cell Distribution Width 14.4 % (11.6-14.4)
[2020-09-01 06:07] LABS: BNP 81.1 pg/mL (0-100)
--- NOTE | 2020-09-01 06:09 | PC.NURSE ---
Unable to do daily wt. at 0600, bed is not a scale bed and pt. unable to stand for wt. Charge nurse informed.
[2020-09-01 06:12] LABS: Alanine Aminotransferase 51 U/L (14-59); Albumin Level 2.8 g/dL (3.4-5.0); Alkaline Phosphatase 63 U/L (46-116); Anion Gap 9 mmol/L (8-16); Aspartate Amino Transferase 48 U/L (15-37); Bilirubin,Total 0.4 mg/dL (0.00-1.00); Blood Urea Nitrogen 50 mg/dL (7-18); Calcium 8.9 mg/dL (8.5-10.1); Carbon Dioxide 28 mmol/L (21-32); Chloride 94 mmol/L (98-108); Estimated CRCL calculation 51 ml/min; Estimated Glomerular Filt Rate 46; Glucose 258 mg/dL (70-99); Magnesium 1.7 mg/dL (1.8-2.4); Osmolality Calculated 294 mOsm/kg (285-295); Potassium 3.2 mmol/L (3.5-5.1); Sodium 131 mmol/L (136-145); Total Protein 6.6 g/dL (6.4-8.2)
[2020-09-01] MEDS: LEVOTHYROXINE SODIUM 88 MCG TABLET PO (06:27)
[2020-09-01 08:39] LABS: Glucose Point of Care 246 (65-105)
[2020-09-01] MEDS: ENOXAPARIN 40 MG/0.4 ML SYRINGE SUB-Q ×2 (08:57→20:59)
[2020-09-01] MEDS: ASCORBIC ACID 500 MG TABLET 1000 MG PO (08:57)
[2020-09-01] MEDS: MAGNESIUM OXIDE 400 MG TABLET PO (08:58)
[2020-09-01] MEDS: PANTOPRAZOLE SOD SESQUIHYDRATE 20 MG TAB PO (08:58)
[2020-09-01] MEDS: FUROSEMIDE 40 MG TABLET PO (08:58)
[2020-09-01] MEDS: ASPIRIN 81 MG ENTERIC TABLET PO (08:58)
[2020-09-01] MEDS: ATORVASTATIN 40 MG TABLET 80 MG PO (08:58)
[2020-09-01] MEDS: CHOLECALCIFEROL 400 UNITS TABLET (VIT D) PO (08:58)
[2020-09-01] MEDS: ESCITALOPRAM OXALATE 10 MG TABLET 20 MG PO (08:58)
[2020-09-01] MEDS: DEXAMETHASONE 2 MG TABLET 6 MG PO (08:59)
[2020-09-01] MEDS: ALBUTEROL SULFATE (*SP) INHALER 2 PUFF INHALATION ×4 (09:00→21:00)
[2020-09-01] MEDS: MAGNESIUM SULF 2 GM/WATER 50ML 2 GM/50 ML BAG IVPB (09:50)
[2020-09-01] MEDS: POTASSIUM CHLORIDE 20 MEQ TABLET 40 MEQ PO (10:42)
--- NOTE | 2020-09-01 11:08 | P.PN_ITS ---
Progress Note: A&P Assessment and Plan (1) COVID-19: Code(s): U07.1 - COVID-19 Status: Acute Assessment and Plan: * Patient tested + 08/27/2020 patient off quarantine 09/07. Test done at outside facility * Continue dexamethasone /10 in remdesivir started 08/30/2020 * Chest x-ray indicates . Airspace opacities in right mid and lower lung zones and left lower lung zone, consistent with atelectasis versus pneumonia. * CTA negative for PE (2) HALI (obstructive sleep apnea): Code(s): G47.33 - Obstructive sleep apnea (adult) (pediatric) Status: Acute Assessment and Plan: * CPAP discontinued due to positive Covid test * Will continue 6 L nasal cannula (3) Essential hypertension: Code(s): I10 - Essential (primary) hypertension Status: Acute Assessment and Plan: * Blood pressure 166/80, blood pressure is elevated appears to be a isolated episode, will continue to monitor and adjust as needed * Continue Cardizem 30 mg every 6 hours * Continue Lasix 40 mg daily * Will adjust medication as needed * Vital signs as ordered (4) HLD (hyperlipidemia): Code(s): E78.5 - Hyperlipidemia, unspecified Status: Acute Assessment and Plan: * Continue statins 80 mg daily (5) GERD without esophagitis: Code(s): K21.9 - Gastro-esophageal reflux disease without esophagitis Status: Acute Assessment and Plan: * Started PPI (6) Chronic kidney disease, stage 3 (moderate): Code(s): N18.3 - Chronic kidney disease, stage 3 (moderate) Status: Acute Assessment and Plan: * Creatinine has improved since admission on admission 1. 2 6 currently 1.15. Baseline appears to be 0.83-1.01 * Will continue to monitor * Renal dose medication (7) Morbidly obese: Code(s): E66.01 - Morbid (severe) obesity due to excess calories Status: Acute Assessment and Plan: * Patient educated on healthy lifestyle (8) Hypothyroid: Code(s): E03.9 - Hypothyroidism, unspecified Status: Acute Assessment and Plan: * Continue Synthroid 88 MCG's daily (9) Type 2 diabetes mellitus: Code(s): E11.9 - Type 2 diabetes mellitus without complications Status: Chronic Assessment and Plan: * Blood sugar 246 * Elevated due to steroid use * Started Accu-Cheks with sliding scale and hypoglycemic protocol * Will adjust medication as needed (10) COPD (chronic obstructive pulmonary disease): Code(s): J44.9 - Chronic obstructive pulmonary disease, unspecified Status: Acute Assessment and Plan: * Possibly worsened due to Covid * Treat underlying cause Covid * Continue inhalers, say supplementary oxygen, steroids (11) CHF (congestive heart failure): Code(s): I50.9 - Heart failure, unspecified Status: Acute Assessment and Plan: * Compensated * Continue Lasix 40 mg daily * daily weights not completed today we will continue to monitor * BNP 81.1 (12) Lung cancer: Code(s): C34.90 - Malignant neoplasm of unspecified part of unspecified bronchus or lung Status: Acute Assessment and Plan: * Follow-up with oncologist (13) Electrolyte imbalance: Code(s): E87.8 - Other disorders of electrolyte and fluid balance, not elsewhere classified Status: Acute Assessment and Plan: * Potassium at 3.2. Patient will receive daily potassium * Patient received 40 mEq of potassium * Repeat in the a.m. * Mag level 1.7 patient received supplementary mag via IV
--- NOTE | 2020-09-01 11:08 | WPDPN ---
Progress Note: A&P Assessment and Plan (1) COVID-19: Code(s): U07.1 - COVID-19 Status: Acute Assessment and Plan: Patient tested + 08/27/2020 patient off quarantine 09/07. Test done at outside facility Continue dexamethasone /10 in remdesivir started 08/30/2020 Chest x-ray indicates . Airspace opacities in right mid and lower lung zones and left lower lung zone, consistent with atelectasis versus pneumonia. CTA negative for PE (2) HALI (obstructive sleep apnea): Code(s): G47.33 - Obstructive sleep apnea (adult) (pediatric) Status: Acute Assessment and Plan: CPAP discontinued due to positive Covid test Will continue 6 L nasal cannula (3) Essential hypertension: Code(s): I10 - Essential (primary) hypertension Status: Acute Assessment and Plan: Blood pressure 166/80, blood pressure is elevated appears to be a isolated episode, will continue to monitor and adjust as needed Continue Cardizem 30 mg every 6 hours Continue Lasix 40 mg daily Will adjust medication as needed Vital signs as ordered (4) HLD (hyperlipidemia): Code(s): E78.5 - Hyperlipidemia, unspecified Status: Acute Assessment and Plan: Continue statins 80 mg daily (5) GERD without esophagitis: Code(s): K21.9 - Gastro-esophageal reflux disease without esophagitis Status: Acute Assessment and Plan: Started PPI (6) Chronic kidney disease, stage 3 (moderate): Code(s): N18.3 - Chronic kidney disease, stage 3 (moderate) Status: Acute Assessment and Plan: Creatinine has improved since admission on admission 1. 2 6 currently 1.15. Baseline appears to be 0.83-1.01 Will continue to monitor Renal dose medication (7) Morbidly obese: Code(s): E66.01 - Morbid (severe) obesity due to excess calories Status: Acute Assessment and Plan: Patient educated on healthy lifestyle (8) Hypothyroid: Code(s): E03.9 - Hypothyroidism, unspecified Status: Acute Assessment and Plan: Continue Synthroid 88 MCG's daily (9) Type 2 diabetes mellitus: Code(s): E11.9 - Type 2 diabetes mellitus without complications Status: Chronic Assessment and Plan: Blood sugar 246 Elevated due to steroid use Started Accu-Cheks with sliding scale and hypoglycemic protocol Will adjust medication as needed (10) COPD (chronic obstructive pulmonary disease): Code(s): J44.9 - Chronic obstructive pulmonary disease, unspecified Status: Acute Assessment and Plan: Possibly worsened due to Covid Treat underlying cause Covid Continue inhalers, say supplementary oxygen, steroids (11) CHF (congestive heart failure): Code(s): I50.9 - Heart failure, unspecified Status: Acute Assessment and Plan: Compensated Continue Lasix 40 mg daily daily weights not completed today we will continue to monitor BNP 81.1 (12) Lung cancer: Code(s): C34.90 - Malignant neoplasm of unspecified part of unspecified bronchus or lung Status: Acute Assessment and Plan: Follow-up with oncologist (13) Electrolyte imbalance: Code(s): E87.8 - Other disorders of electrolyte and fluid balance, not elsewhere classified Status: Acute Assessment and Plan: Potassium at 3.2. Patient will receive daily potassium Patient received 40 mEq of potassium Repeat in the a.m. Mag level 1.7 patient received supplementary mag via IV Review of Systems Review of Systems: All systems reviewed & are unremarkable except as noted in HPI and below (10 point system review) Exam Narrative: Exam Narrative: GENERAL: This is a well-nourished, well-developed patient, in no apparent distress. HEAD: normocephalic, atraumatic. EYES: PERRL. Sclera clear/white. Vision is grossly intact. EARS: External ears normal, auditory canals clear and without drainage, TMs normal without perforation. Hearing
[2020-09-01 11:44] LABS: Glucose Point of Care 274 (65-105)
[2020-09-01] MEDS: BENZONATATE 100 MG CAPSULE 200 MG PO ×2 (13:58→17:06)
[2020-09-01 17:02] LABS: Glucose Point of Care 301 (65-105)
[2020-09-01] MEDS: hydrALAZINE HCL 20 MG/ML VIAL 5 MG IV PUSH (17:57)
[2020-09-01] MEDS: guaiFENesin 12 HR 600 MG TABCR 1200 MG PO (21:00)
[2020-09-01] MEDS: REMDESIVIR 100 MG/NS 250 ML 100 MG/250 ML BAG 250 MG IVPB (21:01)
[2020-09-01 21:17] LABS: Glucose Point of Care 319 (65-105)
[2020-09-02] VITALS: BP 160/92; PULSE 77; PULSE 88; RESP 18; TEMP 35.8; O2SAT 98
[2020-09-02 04:00] VITALS: PULSE 88
[2020-09-02 04:32] VITALS: BP 154/79; PULSE 86; RESP 22; TEMP 36.4; O2SAT 96
[2020-09-02] MEDS: LEVOTHYROXINE SODIUM 88 MCG TABLET PO (05:44)
[2020-09-02 05:57] LABS: Hematocrit 35.4 % (35.0-42.0); Hemoglobin 11.3 g/dL (11.7-13.8); Mean Corpuscular HGB Conc 31.9 g/dL (32.0-36.0); Mean Corpuscular Hemoglobin 26.9 pg (27.0-31.0); Mean Corpuscular Volume 84.3 fL (78.0-102.0); Mean Platelet Volume 10.8 fl (9.2-11.8); Platelet Count Result 201 K/mm3 (150-420); Red Cell Distribution Width 14.5 % (11.6-14.4); White Blood Count 5.9 K/mm3 (4.8-10.8)
[2020-09-02 06:13] LABS: Band Neutrophils Percent 1 % (0-6); Basophils Percent Manual 0 % (0-1); Eosinophils Absolute Manual 0.05 K/mm3 (0.02-0.5); Eosinophils Percent Manual 1 % (1-6); Lymphocytes Absolute Manual 0.53 K/mm3 (1.1-4.5); Lymphocytes Percent Manual 9 % (18-44); Monocytes Absolute Manual 0.88 K/mm3 (0.1-0.90); Monocytes Percent Manual 15 % (3-9); Neutrophils Absolute Manual 4.42 K/mm3 (1.7-7.2); Neutrophils Percent Manual 74 % (46-73)
[2020-09-02 06:14] LABS: Platelet Estimate Adequate (Adequate)
[2020-09-02 06:23] LABS: Alanine Aminotransferase 47 U/L (14-59); Albumin Level 2.9 g/dL (3.4-5.0); Alkaline Phosphatase 62 U/L (46-116); Anion Gap 8 mmol/L (8-16); Aspartate Amino Transferase 43 U/L (15-37); Bilirubin,Total 0.4 mg/dL (0.00-1.00); Blood Urea Nitrogen 44 mg/dL (7-18); Calcium 8.6 mg/dL (8.5-10.1); Carbon Dioxide 28 mmol/L (21-32); Chloride 94 mmol/L (98-108); Estimated CRCL calculation 53 ml/min; Estimated Glomerular Filt Rate 48; Glucose 296 mg/dL (70-99); Osmolality Calculated 292 mOsm/kg (285-295); Potassium 3.7 mmol/L (3.5-5.1); Sodium 130 mmol/L (136-145); Total Protein 6.7 g/dL (6.4-8.2)
[2020-09-02 07:57] LABS: Glucose Point of Care 284 (65-105)
--- NOTE | 2020-09-02 07:59 | P.DS_ITS ---
DS: Admitting Diagnosis Admitting Diagnosis Admitting Diagnosis: COVID pneumonia, DS: Discharge Diagnosis Discharge Diagnosis (1) COVID-19: Code(s): U07.1 - COVID-19 Status: Acute Assessment and Plan: * Patient tested + 08/27/2020 patient off quarantine 09/07. Test done at outside facility * Continue dexamethasone 3/10 in remdesivir 5 out of 5 completed * Chest x-ray indicates . Airspace opacities in right mid and lower lung zones and left lower lung zone, consistent with atelectasis versus pneumonia. * CTA negative for PE (2) HALI (obstructive sleep apnea): Code(s): G47.33 - Obstructive sleep apnea (adult) (pediatric) Status: Acute Assessment and Plan: * CPAP discontinued due to positive Covid test * Will continue 6 L nasal cannula * She will restart her CPAP when she is back in her half-way (3) Essential hypertension: Code(s): I10 - Essential (primary) hypertension Status: Acute Assessment and Plan: * Blood pressure slightly Elevated, * Patient will discharge with Norvasc * Continue Lasix 40 mg daily * Will adjust medication as needed * Vital signs as ordered (4) HLD (hyperlipidemia): Code(s): E78.5 - Hyperlipidemia, unspecified Status: Acute Assessment and Plan: * Continue statins 80 mg daily (5) GERD without esophagitis: Code(s): K21.9 - Gastro-esophageal reflux disease without esophagitis Status: Acute Assessment and Plan: * Continue PPI (6) Chronic kidney disease, stage 3 (moderate): Code(s): N18.3 - Chronic kidney disease, stage 3 (moderate) Status: Acute Assessment and Plan: * Creatinine has improved since admission on admission 1.2 6 currently 1.151 Baseline appears to be 0.83-1.01 * (7) Morbidly obese: Code(s): E66.01 - Morbid (severe) obesity due to excess calories Status: Acute Assessment and Plan: * Patient educated on healthy lifestyle (8) Hypothyroid: Code(s): E03.9 - Hypothyroidism, unspecified Status: Acute Assessment and Plan: * Continue Synthroid 88 MCG's daily (9) Type 2 diabetes mellitus: Code(s): E11.9 - Type 2 diabetes mellitus without complications Status: Chronic Assessment and Plan: * Blood sugar 296 * Elevated due to steroid use * Will continue sliding scale and hypoglycemic protocol in half-way * Patient will discontinue sliding scale once steroids is complete (10) COPD (chronic obstructive pulmonary disease): Code(s): J44.9 - Chronic obstructive pulmonary disease, unspecified Status: Acute Assessment and Plan: * Possibly worsened due to Covid * Treat underlying cause Covid * Continue inhalers, supplementary oxygen, steroids (11) CHF (congestive heart failure): Code(s): I50.9 - Heart failure, unspecified Status: Acute Assessment and Plan: * Compensated * Continue Lasix 40 mg daily * BNP 81.1 (12) Lung cancer: Code(s): C34.90 - Malignant neoplasm of unspecified part of unspecified bronchus or lung Status: Acute Assessment and Plan: * Follow-up with oncologist (13) Electrolyte imbalance: Code(s): E87.8 - Other disorders of electrolyte and fluid balance, not elsewhere classified Status: Acute Assessment and Plan: * Potassium at 3.7. Patient will receive daily potassium * Patient received 40 mEq of potassium DS: Summary Hospital Course Hospital Course: This is a 75-year-old white female
--- NOTE | 2020-09-02 07:59 | PM.DS ---
DS: Admitting Diagnosis Admitting Diagnosis Admitting Diagnosis: COVID pneumonia, DS: Discharge Diagnosis Discharge Diagnosis (1) COVID-19: Code(s): U07.1 - COVID-19 Status: Acute Assessment and Plan: Patient tested + 08/27/2020 patient off quarantine 09/07. Test done at outside facility Continue dexamethasone 3/10 in remdesivir 5 out of 5 completed Chest x-ray indicates . Airspace opacities in right mid and lower lung zones and left lower lung zone, consistent with atelectasis versus pneumonia. CTA negative for PE (2) HALI (obstructive sleep apnea): Code(s): G47.33 - Obstructive sleep apnea (adult) (pediatric) Status: Acute Assessment and Plan: CPAP discontinued due to positive Covid test Will continue 6 L nasal cannula She will restart her CPAP when she is back in her long-term (3) Essential hypertension: Code(s): I10 - Essential (primary) hypertension Status: Acute Assessment and Plan: Blood pressure slightly Elevated, Patient will discharge with Norvasc Continue Lasix 40 mg daily Will adjust medication as needed Vital signs as ordered (4) HLD (hyperlipidemia): Code(s): E78.5 - Hyperlipidemia, unspecified Status: Acute Assessment and Plan: Continue statins 80 mg daily (5) GERD without esophagitis: Code(s): K21.9 - Gastro-esophageal reflux disease without esophagitis Status: Acute Assessment and Plan: Continue PPI (6) Chronic kidney disease, stage 3 (moderate): Code(s): N18.3 - Chronic kidney disease, stage 3 (moderate) Status: Acute Assessment and Plan: Creatinine has improved since admission on admission 1.2 6 currently 1.151 Baseline appears to be 0.83-1.01 (7) Morbidly obese: Code(s): E66.01 - Morbid (severe) obesity due to excess calories Status: Acute Assessment and Plan: Patient educated on healthy lifestyle (8) Hypothyroid: Code(s): E03.9 - Hypothyroidism, unspecified Status: Acute Assessment and Plan: Continue Synthroid 88 MCG's daily (9) Type 2 diabetes mellitus: Code(s): E11.9 - Type 2 diabetes mellitus without complications Status: Chronic Assessment and Plan: Blood sugar 296 Elevated due to steroid use Will continue sliding scale and hypoglycemic protocol in long-term Patient will discontinue sliding scale once steroids is complete (10) COPD (chronic obstructive pulmonary disease): Code(s): J44.9 - Chronic obstructive pulmonary disease, unspecified Status: Acute Assessment and Plan: Possibly worsened due to Covid Treat underlying cause Covid Continue inhalers, supplementary oxygen, steroids (11) CHF (congestive heart failure): Code(s): I50.9 - Heart failure, unspecified Status: Acute Assessment and Plan: Compensated Continue Lasix 40 mg daily BNP 81.1 (12) Lung cancer: Code(s): C34.90 - Malignant neoplasm of unspecified part of unspecified bronchus or lung Status: Acute Assessment and Plan: Follow-up with oncologist (13) Electrolyte imbalance: Code(s): E87.8 - Other disorders of electrolyte and fluid balance, not elsewhere classified Status: Acute Assessment and Plan: Potassium at 3.7. Patient will receive daily potassium Patient received 40 mEq of potassium DS: Summary Hospital Course Hospital Course: This is a 75-year-old white female that was admitted to our hospital on 08/29/2020. Presented to ED with increased demand for oxygen shortness of breath fatigue cough body ache and fever. She did test positive for Covid. This hospital stay she was treated with dexamethasone she was discharged with and she completed her doses of remdesivir. On arrival to our hospital patient was not able to follow commands or communicate. This day of discharge she is alert and orientated and able to follow commands her
[2020-09-02 08:00] VITALS: BP 168/84; PULSE 112; PULSE 76; RESP 18; TEMP 35.7; O2SAT 94
[2020-09-02] MEDS: ATORVASTATIN 40 MG TABLET 80 MG PO (09:17)
[2020-09-02] MEDS: BENZONATATE 100 MG CAPSULE 200 MG PO ×2 (09:17→12:24)
[2020-09-02] MEDS: DEXAMETHASONE 2 MG TABLET 6 MG PO (09:18)
[2020-09-02] MEDS: MAGNESIUM OXIDE 400 MG TABLET PO (09:18)
[2020-09-02] MEDS: ASCORBIC ACID 500 MG TABLET 1000 MG PO (09:19)
[2020-09-02] MEDS: POTASSIUM CHLORIDE 20 MEQ TABLET 40 MEQ PO (09:19)
[2020-09-02] MEDS: PANTOPRAZOLE SOD SESQUIHYDRATE 20 MG TAB PO (09:19)
[2020-09-02] MEDS: CHOLECALCIFEROL 400 UNITS TABLET (VIT D) PO (09:20)
[2020-09-02] MEDS: ASPIRIN 81 MG ENTERIC TABLET PO (09:20)
[2020-09-02] MEDS: FUROSEMIDE 40 MG TABLET PO (09:20)
[2020-09-02] MEDS: ENOXAPARIN 40 MG/0.4 ML SYRINGE SUB-Q (09:20)
[2020-09-02] MEDS: guaiFENesin 12 HR 600 MG TABCR 1200 MG PO (09:20)
[2020-09-02] MEDS: ESCITALOPRAM OXALATE 10 MG TABLET 20 MG PO (09:20)
[2020-09-02] MEDS: ALBUTEROL SULFATE (*SP) INHALER 2 PUFF INHALATION ×2 (09:23→12:25)
[2020-09-02] MEDS: SODIUM BICARBONATE TAB 650 MG TABLET 325 MG PO (09:25)
[2020-09-02 12:03] LABS: Glucose Point of Care 283 (65-105)
[2020-09-02] MEDS: REMDESIVIR 100 MG/NS 250 ML 100 MG/250 ML BAG 250 MG IVPB (13:56)
--- NOTE | 2020-09-02 15:49 | PC.NURSE ---
Telemetry discontinued at 12. Patient will be discharged today.
--- NOTE | 2020-09-02 16:42 | PC.NURSE ---
report called to [facility], stephenson removed per [place] staff, stephenson removed
--- NOTE | 2020-09-02 16:54 | PC.NURSE ---
[facility] has called and will be here in 2hrs to transport pt back to [place], [facility] called and given update
--- NOTE | 2020-09-20 14:44 | PC.NURSE ---
Pt at [place] before discharge call back could be made.
== END 2020-09-02 17:30 | DRG 178 ==
PROVIDERS: Nurse Practitioner; Nurse Practitioner Family; Admitting Provider Emergency Medicine; PCP Family Medicine; Visit Provider Emergency Medicine
DX: U07.1 COVID-19 (principal); I13.0 Hypertensive heart and chronic kidney disease with heart failure and stage 1 through stage 4 chronic kidney disease, or unspecified chronic kidney disease; C34.90 Malignant neoplasm of unspecified part of unspecified bronchus or lung; E87.8 Other disorders of electrolyte and fluid balance, not elsewhere classified; N18.30 Chronic kidney disease, stage 3 unspecified; I50.9 Heart failure, unspecified; E11.22 Type 2 diabetes mellitus with diabetic chronic kidney disease; E03.9 Hypothyroidism, unspecified; E78.5 Hyperlipidemia, unspecified; G47.33 Obstructive sleep apnea (adult) (pediatric); K21.9 Gastro-esophageal reflux disease without esophagitis; E66.01 Morbid (severe) obesity due to excess calories
CPT/HCPCS: 36415; 36600; 71045; 71275; 80048; 80053; 82805; 83735; 83880; 84460; 84484; 85025; 85610; 86140; 87040; 93005; 96361; 96365; 96366; 96367; 96372; 96375; A9270; G0378; J0360; J1650; J1815; J1940; J3475; J3480; J7030; J8540; Q9965; Q9967